=== PATIENT | female | born 1960 | race Caucasian/White ===

== ENCOUNTER → 2017-04-18 | Outpatient (CLI) | payer SELFPAY ==
--- NOTE | 2017-04-18 09:27 | REP ---
RIGHT ANKLE, TWO VIEWS: HISTORY: Remote injury. There are nondisplaced fractures of the medial malleolus and distal fibula. Periosteal new bone formation is present at the fracture site of the distal fibula. There is no dislocation. The joint space is normal in appearance. IMPRESSION: Nondisplaced fractures of the medial malleolus and distal fibula. Signed by Keith Tobias MD 04/18/2017 09:39 A
== END ==
LOC: M WUC 08:59
PROVIDERS: ATTEND Physician Assistant
DX: S82.851A Displaced trimalleolar fracture of right lower leg, initial encounter for closed fracture (principal); S82.401A Unspecified fracture of shaft of right fibula, initial encounter for closed fracture; X58.XXXA Exposure to other specified factors, initial encounter; Y92.89 Other specified places as the place of occurrence of the external cause; Y93.89 Activity, other specified; Y99.8 Other external cause status

== ENCOUNTER → 2017-12-28 | Outpatient (REF) | LOC: M SMT 10:43 | DX: Z00.00 Encounter for general adult medical examination without abnormal findings (principal) ==

== ENCOUNTER → 2018-04-05 | Outpatient (CLI) | payer OTHER | LOC: M SLEEP 19:54 | DX: G47.33 Obstructive sleep apnea (adult) (pediatric) (principal) | CPT/HCPCS: 95810 ==

== ENCOUNTER 2018-04-13 06:59 | Day surgery (SDC) | payer OTHER ==
[2018-04-13] MEDS ORDERED: PROPOFOL 200 MG/20 ML VIAL As Ordered ×2 (07:04)
[2018-04-13] MEDS ORDERED: LIDOCAINE 2% INJ 100 MG/5 ML SDV (FOR ANES.) As Ordered (07:04)
[2018-04-13] MEDS: NS 1,000 ML IV (07:20)
== END 2018-04-13 09:10 | disposition home or self-care (01) ==
LOC: M OPP 06:59
DX: Z12.11 Encounter for screening for malignant neoplasm of colon (principal); K64.4 Residual hemorrhoidal skin tags; K57.30 Diverticulosis of large intestine without perforation or abscess without bleeding; I10 Essential (primary) hypertension; E78.00 Pure hypercholesterolemia, unspecified; E03.9 Hypothyroidism, unspecified; F32.9 Major depressive disorder, single episode, unspecified; F41.9 Anxiety disorder, unspecified; Z79.899 Other long term (current) drug therapy; Z87.891 Personal history of nicotine dependence
CPT/HCPCS: 45378

== ENCOUNTER 2020-01-22 10:06 | Emergency (ER) | payer OTHER ==
[~2020-01-22 10:06] MED LIST: ACET1TAB55 PO; ADVI1CAP2 PO; LEVO112T2 PO; LOSA100T50 PO; SIMV80TA13 PO; ZOLO100T PO
== END 2020-01-22 11:02 | disposition home or self-care (01) ==
LOC: M ED 10:06
DX: S09.90XA Unspecified injury of head, initial encounter (principal); S00.83XA Contusion of other part of head, initial encounter; S50.311A Abrasion of right elbow, initial encounter; S70.311A Abrasion, right thigh, initial encounter; S70.312A Abrasion, left thigh, initial encounter; W19.XXXA Unspecified fall, initial encounter; Y92.098 Other place in other non-institutional residence as the place of occurrence of the external cause; Y93.89 Activity, other specified; Y99.9 Unspecified external cause status; G47.30 Sleep apnea, unspecified; E03.9 Hypothyroidism, unspecified; F41.9 Anxiety disorder, unspecified; F32.9 Major depressive disorder, single episode, unspecified; M25.78 Osteophyte, vertebrae; M50.93 Cervical disc disorder, unspecified, cervicothoracic region; J34.89 Other specified disorders of nose and nasal sinuses

== ENCOUNTER 2020-04-10 21:52 | Emergency (ER) | payer OTHER ==
[~2020-04-10] VITALS: Ht 152.4 cm; Wt 80.9 kg
[2020-04-10 22:48] LABS: BASO % 0.4 % (0.0-1.0); EOS # 0.1 10^3/uL (0.0-0.5); EOS % 2.3 % (0.0-3.0); HEMATOCRIT 35.7 % (36.0-47.0); LYMPH # 1.6 10^3/uL (1.5-5.0); LYMPH % 29.9 % (24.0-44.0); MEAN CORPUSCULAR HEMOGLOBIN 30.9 pg (27.0-33.0); MEAN CORPUSCULAR HGB CONC 30.8 g/dl (32.0-36.5); MEAN CORPUSCULAR VOLUME 100.3 fl (80.0-96.0); MONO # 0.3 10^3/uL (0.0-0.8); MONO % 5.6 % (0.0-5.0); NEUTROPHILS # 3.2 10^3/uL (1.5-8.5); NEUTROPHILS % 61.2 % (36.0-66.0); PLATELET COUNT, AUTOMATED 208 10^3/uL (150-450); RED BLOOD COUNT 3.56 10^6/uL (4.00-5.40); WHITE BLOOD COUNT 5.2 10^3/uL (4.0-10.0)
--- NOTE | 2020-04-10 22:58 | REPVR ---
PROCEDURE INFORMATION: Exam: XR Chest, 1 View Exam date and time: 04/10/2020 10:19 PM Age: 59 years old Clinical indication: Other: Chest pain TECHNIQUE: Imaging protocol: XR of the chest Views: 1 view. COMPARISON: No relevant prior studies available. FINDINGS: Lungs: Unremarkable. No consolidation. Pleural space: Unremarkable. No pleural effusion. No pneumothorax. Heart/Mediastinum: Unremarkable. No cardiomegaly. Bones/joints: Unremarkable. IMPRESSION: No acute findings. Electronically signed by: Leo Reed On 04/10/2020 22:57:39 PM
[2020-04-10] MEDS ORDERED: COMBIVENT RESPIMAT 100-20MCG INHALER 4GM INH ONE (23:00)
[2020-04-10] MEDS ORDERED: BENZONATATE 100 MG CAP PO ONE (23:00)
[2020-04-10] MEDS ORDERED: KETOROLAC 30 MG/ML 1ML VIAL IV ONE (23:00)
[2020-04-10] MEDS ORDERED: LEVO200T4 PO (23:22)
[2020-04-10] MEDS ORDERED: [UNRECOGNIZED DRUG - REMARK] (23:22)
[2020-04-10 23:28] LABS: BLOOD UREA NITROGEN 13 MG/DL (7-18); CALCIUM LEVEL 9.6 MG/DL (8.5-10.1); CARBON DIOXIDE LEVEL 28 MEQ/L (21-32); CHLORIDE LEVEL 109 MEQ/L (98-107); CPK CREATINE PHOSPHOKINASE 458 U/L (26-192); CREATININE FOR GFR 0.62 MG/DL (0.55-1.30); GLOMERULAR FILTRATION RATE > 60.0 (>51); GLUCOSE, FASTING 117 MG/DL (70-100); MB/CK RELATIVE INDEX 1.09 (< OR =4); POTASSIUM SERUM 3.9 MEQ/L (3.5-5.1); SODIUM LEVEL 142 MEQ/L (136-145); TROPONIN I < 0.02 NG/ML (< 0.10)
[2020-04-11 01:00] VITALS: BP 151/94
[2020-04-11] MEDS ORDERED: PRED20TA PO (01:15)
[2020-04-11] MEDS ORDERED: TESS100C PO (01:15)
[2020-04-11] MEDS ORDERED: PROAAER10 INH (01:15)
[2020-04-11] MEDS ORDERED: predniSONE 20 MG TAB PO ONE (01:15)
--- NOTE | 2020-04-12 13:36 | ECGEPIP ---
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
== END 2020-04-11 01:27 | disposition home or self-care (01) ==
LOC: M ED 21:52
DX: J20.9 Acute bronchitis, unspecified (principal); R07.1 Chest pain on breathing; Z20.828 Contact with and (suspected) exposure to other viral communicable diseases; I10 Essential (primary) hypertension; E03.9 Hypothyroidism, unspecified; Z79.899 Other long term (current) drug therapy
CPT/HCPCS: 71045; 80048; 82550; 82553; 84484; 85025; 93005; 93041; 94760; 96374; 99285; J1885; U0002

== ENCOUNTER 2024-05-17 08:27 | Day surgery (SDC) | payer OTHER ==
[~2024-05-17] VITALS: Ht 152.4 cm; Wt 71.8 kg
[~2024-05-17 08:27] MED LIST changes: +CLON0.2T PO; +CYCLOPENTOLATE 1% OPHTH SOLN 2ML BTL OS SCH; +CYMB60CA4 PO; +LEVO200T4 PO; +LEVO25TA5 PO; +LIDOCAINE 3.5 % 1ML OPHTH TOPICAL GEL OU ONE; +LOSA100T46 PO; -LOSA100T50 PO; +MIDAZOLAM INJ 2MG/2ML VIAL As Ordered ONE; +OFLOXACIN 0.3 % (OCUFLOX) OPTH SOL 5ML OS ONE; +PHENYLEPHRINE 10% OPHTH SOL 5ML OS PRN; +PHENYLEPHRINE 2.5% OPHTH SOL 2ML OS SCH; +PRED20TA PO; +PROAAER10 INH; +QUET100T2 PO; +TESS100C PO; +TROPICAMIDE 1% OPHTH SOLN 15ML OS SCH; +[UNRECOGNIZED DRUG - REMARK]
[2024-05-17] MEDS: BSS IRRIG/VANCO(10MG)/TOBRA(5MG)/EPINEPH(1:1000-0.5CC)500ML BAG-ORONLY As Ordered ONE (11:06)
[2024-05-17] MEDS: CEFUROXIME 1MG/0.1ML INTRACAMERAL INJ As Ordered ONE (11:06)
[2024-05-17] MEDS: LIDOCAINE 1% SDV 5ML VIAL As Ordered ONE (11:06)
[2024-05-17] MEDS: DUOVISC (0.50ML VISCOAT/0.85ML PROVISC) OPHTH KIT As Ordered ONE (11:08)
[2024-05-17] MEDS ORDERED: fentaNYL 100 MCG/2 ML INJECTION As Ordered ONE (11:09)
[2024-05-17] MEDS: BALANCED SALT SOLN OPHTH 15 ML BTL As Ordered ONE (11:12)
[2024-05-17] MEDS: ACETYLCHOLINE OPHTH SOLN 1% 2ML (MIOCHOL-E) As Ordered ONE (11:26)
[2024-05-17] MEDS ORDERED: KETOROLAC 60MG 2ML VIAL As Ordered ONE (11:37)
[2024-05-17 12:20] VITALS: BP 155/88; TEMP 96.9; O2SAT 97
== END 2024-05-17 12:25 | disposition home or self-care (01) ==
LOC: M SDC 08:27
PROVIDERS: ATTEND Ophthalmology
DX: H25.9 Unspecified age-related cataract (principal); H57.03 Miosis; G47.30 Sleep apnea, unspecified; Z88.8 Allergy status to other drugs, medicaments and biological substances; Z91.041 Radiographic dye allergy status; Z79.899 Other long term (current) drug therapy; Z87.891 Personal history of nicotine dependence
CPT/HCPCS: 66982; 92015; J0697; J1885; J2250; J3010; V2788

== ENCOUNTER 2024-09-13 10:17 | Day surgery (SDC) | payer OTHER ==
[~2024-09-13] VITALS: Ht 154.9 cm; Wt 75.7 kg
[~2024-09-13 10:17] MED LIST changes: -CYCLOPENTOLATE 1% OPHTH SOLN 2ML BTL OS SCH; -LIDOCAINE 3.5 % 1ML OPHTH TOPICAL GEL OU ONE; -MIDAZOLAM INJ 2MG/2ML VIAL As Ordered ONE; -OFLOXACIN 0.3 % (OCUFLOX) OPTH SOL 5ML OS ONE; +PHENYLEPHRINE 10% OPHTH SOL 5ML OD PRN; -PHENYLEPHRINE 10% OPHTH SOL 5ML OS PRN; -PHENYLEPHRINE 2.5% OPHTH SOL 2ML OS SCH; -TROPICAMIDE 1% OPHTH SOLN 15ML OS SCH
[2024-09-13] MEDS ORDERED: MIDAZOLAM INJ 2MG/2ML VIAL As Ordered ONE (10:59)
[2024-09-13] MEDS ORDERED: fentaNYL 100 MCG/2 ML INJECTION As Ordered ONE (10:59)
[2024-09-13] MEDS: LIDOCAINE 3.5 % 1ML OPHTH TOPICAL GEL OU ONE (11:10)
[2024-09-13] MEDS: OFLOXACIN 0.3 % (OCUFLOX) OPTH SOL 5ML OD ONE (11:10)
[2024-09-13] MEDS: CYCLOPENTOLATE 1% OPHTH SOLN 2ML BTL OD SCH (11:29)
[2024-09-13] MEDS: TROPICAMIDE 1% OPHTH SOLN 15ML OD SCH (11:30)
[2024-09-13] MEDS: PHENYLEPHRINE 2.5% OPHTH SOL 2ML OD SCH (11:30)
[2024-09-13] MEDS: BSS IRRIG/VANCO(10MG)/TOBRA(5MG)/EPINEPH(1:1000-0.5CC)500ML BAG-ORONLY As Ordered ONE (11:32)
[2024-09-13] MEDS: LIDOCAINE 1% SDV 5ML VIAL As Ordered ONE (11:32)
[2024-09-13] MEDS: CEFUROXIME 1MG/0.1ML INTRACAMERAL INJ As Ordered ONE (11:32)
[2024-09-13 11:49] VITALS: BP 131/74; TEMP 97; O2SAT 97
== END 2024-09-13 12:40 | disposition home or self-care (01) ==
LOC: M SDC 10:17
PROVIDERS: ATTEND Ophthalmology
DX: H25.11 Age-related nuclear cataract, right eye (principal); I10 Essential (primary) hypertension; E03.9 Hypothyroidism, unspecified; E78.00 Pure hypercholesterolemia, unspecified; G47.30 Sleep apnea, unspecified; Z79.899 Other long term (current) drug therapy; Z79.890 Hormone replacement therapy; Z91.041 Radiographic dye allergy status
CPT/HCPCS: 66984; 92015; J0697; J2250; J3010; V2788